=== PATIENT | female | born 1975 | race African-American/Black ===

== ENCOUNTER 2017-04-22 12:37 | Observation (INO) | payer BC ==
[2017-04-22 12:43] VITALS: BMI 32.4
[2017-04-22] MEDS ORDERED: ASPIRIN 81 MG CHEWABLE TABLETS PO ONE (14:16)
[2017-04-22 14:29] LABS: BASOPHIL 0.5 % (0-2.0); EOSINOPHIL 0.3 % (0-4.5); MCH 29.1 pg (25.7-33.7); MCHC 35.4 g/dl (32.0-36.0); MEAN CELL VOLUME 82.1 fl (80-96); MEAN PLT VOLUME 7.4 fl (7.5-11.1); PLATELET COUNT 334 K/MM3 (134-434); WHITE BLOOD COUNT 9.1 K/mm3 (4.0-10.0)
--- NOTE | 2017-04-22 14:29 | PDOC ---
History of Present Illness - General Chief Complaint: Shortness of Breath Stated Complaint: SOB Time Seen by Provider: 04/22/17 13:40 History Source: Patient Exam Limitations: No Limitations - History of Present Illness Initial Comments: 04/22/17 14:24 Patient came to emergency department with 2 complaints :first complaint, progressive episodes of shortness of breath. States a few months ago initial episodes occurred with exercise "walking up hills" and with spontaneously resolved. Patient states at that time would have some intermittent palpitations , would have some intermittent diaphoresis, but with resolution patient did not become overly concerned. Patient states these episodes have become more frequent , and occur at rest now. States had a few episodes today but spontaneously resolved.There is no exercise or activities associated with the incidence, never been evaluated nor ever been told had any cardiac disease. No family members with early cardiac illness. Patient has not seen a physician for many years as she "does not like to go to doctors". Patient denies fever, earache or sore throat pain. Has had no recent URIs. States has pollen and seasonal ALLERGIES but has not been suffering recently. No history of asthma or respiratory illness. Problem #2 and started about possible hemorrhoid with rectal pain. States a few days ago noticed some tenderness in her rectum and has been mildly constipated. States is trying to diet and increased treat protein in her diet making it a little more difficult to defecate. Denies any fever, denies any blood or change in color of stool, however have become more firm. No history of hemorrhoids, no other history of any rectal illness or pathology. 04/22/17 14:28 Timing/Duration: unsure Severity: mild Past History - Travel Traveled outside of the country in the last 30 days: No Close contact w/someone who was outside of country & ill: No - Past Medical History Allergies/Adverse Reactions: Allergies Allergy/AdvReac Type Severity Reaction Status Date / Time No Known Allergies Allergy Verified 04/22/17 12:39 Home Medications: Ambulatory Orders NK [No Known Home Medication] 04/22/17 Other medical history: none - Psycho/Social/Smoking Cessation Hx Anxiety: No Suicidal Ideation: No Smoking History: Never smoked Have you smoked in the past 12 months: No Information on smoking cessation initiated: No Hx Alcohol Use: No Drug/Substance Use Hx: No Substance Use Type: None Review of Systems - Review of Systems Able to Perform ROS?: Yes Is the patient limited Telugu proficient: Yes Constitutional: Yes: See HPI. No: Symptoms Reported, Fever, Malaise HEENTM: Yes: See HPI. No: Symptoms Reported Respiratory: Yes: Symptoms reported, See HPI, Orthopnea, Shortness of Breath, SOB with Exertion ABD/GI: Yes: Symptoms Reported, Other (rectal pain with swelling ) Integumentary: No: Symptoms Reported Neurological: Yes: See HPI, Dizziness (mild intermirttant dizziness with episodes of SOB). No: Symptoms reported, Headache, Numbness, Paresthesia All Other Systems: Reviewed and Negative *Physical Exam - Vital Signs Last Vital Signs Temp Pulse Resp BP Pulse Ox 98.2 F 75 18 148/81 100 04/22/17 12:41 04/22/17 12:41 04/22/17 12:41 04/22/17 12:41 04/22/17 12:41 - Physical Exam General Appearance: Yes: Nourished, Appropriately Dressed, Mild Distress HEENT: positive: ROSALIO, Normal ENT Inspection, TMs Normal, Pharynx Normal Neck: positive: Supple Respiratory/Chest: positive: Lungs Clear, Normal Breath Sounds Cardiovascular: positive: Regular Rhythm, Regular Rate Gastrointestinal/Abdominal: positive: Normal Bowel Sounds, Soft. negative: Tender Rectal Exam: positive: normal rectal tone, deferred, other (firm tender lesion on perineum that extends into the rectal vault approximately 3 cm that is 5 cm . No appreciated hemorrhoids,). negative: hemorrhoids Musculoskeletal: positive: Normal Inspection Extremity: positive: Normal Capillary Refill Integumentary: positive: Warm, Pale Neurologic: positive: sql database developer II-XII NML intact, Fully Oriented, Alert, Normal Mood/ Affect, Normal Response, Motor Strength 5/5 ED Treatment Course - LABORATORY CBC & Chemistry Diagram: 04/22/17 14:19 04/22/17 14:19 - RADIOLOGY Radiology Studies Ordered: Category Date Time Status CHEST PA & LAT [RAD] Stat Radiology 04/22/17 14:16 Ordered Medical Decision Making - Medical Decision Making 04/22/17 14:41 after thorough history obtained, and an initial clinical exam patient was transferred to main emergency department for more thorough evaluation and workup for cardiac symptomatology. Also patient secondary problem of rectal abscess will need surgical evaluation and possible intervention. Patient updated the plan, moved to bed 9 be in main emergency department and report given to Dr. Yesy Lovell. Nursing staff aware *DC/Admit/Observation/Transfer Diagnosis at time of Disposition: Chest tightness, Abscess - Discharge Dispostion Disposition: HOME Condition at time of disposition: Stable
[2017-04-22 14:40] LABS: INR 1.05 (0.82-1.09); PROTHROMBIN TIME (PATIENT) 11.6 SEC (9.98-11.88)
[2017-04-22] MEDS ORDERED: ASPIRIN 81 MG CHEWABLE TABLETS ONE (14:51)
[2017-04-22 14:53] LABS: ALBUMIN 3.7 g/dl (3.4-5.0); ANION GAP 8 (8-16); BILIRUBIN,TOTAL 0.4 mg/dL (0.2-1.0); CALCIUM 9.4 mg/dL (8.5-10.1); CO2 26 mmol/L (21-32); CREATININE 0.8 mg/dL (0.55-1.02); GLUCOSE,RANDOM 94 mg/dL (74-106); MAGNESIUM 2.2 mg/dL (1.8-2.4); SGOT/AST 14 U/L (15-37); SGPT/ALT 20 U/L (12-78); TOT PROT 7.3 g/dl (6.4-8.2)
[2017-04-22 14:56] LABS: ALK PHOS 70 U/L (45-117); TROPONIN I < 0.02 ng/ml (0.00-0.05)
--- NOTE | 2017-04-22 15:14 | PDOC ---
History of Present Illness - General History Source: Patient Exam Limitations: No Limitations <Florence Lovell - Last Filed: 04/23/17 16:22> - General History Source: Patient Exam Limitations: No Limitations - History of Present Illness Initial Comments: 04/22/17 16:32 The patient is a 42-year-old woman with no past medical history who initially was evaluated by [facility] and was sent back to the main emergency department for further evaluation of shortness of breath and possible perirectal abscess. Patient initially presented to [facility] complaining of progressively worsening exertional shortness of breath for the past few months. She states that her symptoms have become more frequent, now nonexertional and with noted associated intermittent palpitations and chest tightness (lasting a few seconds to minutes) with a rated 4/10 in severity. Patient denied any personal/family cardiac related past medical history. She denies fever, chills, generalized weakness, neck pain, back pain, cough, headache, lightheadedness, dizziness, leg pain, swelling. She also complained of constipation as she recalled having rectal pain 2 days ago. She reports a new diet change, including increase in protein intake for which she attributes to her rectal pain and constipation. She denies any hematochezia and melena. She denies history of hemorrhoids. No abdominal pain, nausea, vomiting. No flank pain, hematuria, urinary frequency/hesitancy,urgency. Allergies: No Known Drug Allergies Past Surgical History: None reported Social History: No tobacco, EtOH and recreational drug use. <Richa Watson - Last Filed: 04/24/17 07:52> - General Chief Complaint: Shortness of Breath Stated Complaint: SOB Time Seen by Provider: 04/22/17 13:40 Past History - Past Medical History Other medical history: none - Psycho/Social/Smoking Cessation Hx Anxiety: No Suicidal Ideation: No Smoking History: Never smoked Have you smoked in the past 12 months: No Information on smoking cessation initiated: No Hx Alcohol Use: No Drug/Substance Use Hx: No Substance Use Type: None <Florence Lovell - Last Filed: 04/23/17 16:22> <Richa Watson - Last Filed: 04/24/17 07:52> - Past Medical History Allergies/Adverse Reactions: Allergies Allergy/AdvReac Type Severity Reaction Status Date / Time No Known Allergies Allergy Verified 04/22/17 12:39 Home Medications: Ambulatory Orders NK [No Known Home Medication] 04/22/17 Review of Systems - Review of Systems Is the patient limited Chinese proficient: Yes <Florence Lovell - Last Filed: 04/23/17 16:22> - Review of Systems Able to Perform ROS?: Yes Comments:: 04/22/17 16:33 GENERAL/CONSTITUTIONAL: No: fever, chills, weakness, loss of appetite. HEAD, EYES, EARS, NOSE AND THROAT: No: change in vision, ear pain, discharge, sore throat, throat swelling. CARDIOVASCULAR: Yes: Chest tightness. Palpitations. No: lightheadedness, syncope RESPIRATORY: Yes: Shortness of breath. No: cough, wheezing, hemoptysis, stridor. GASTROINTESTINAL: Yes: Constipation. Rectal Pain. Re No: nausea, vomiting, abdominal cramping, diarrhea, rectal bleeding. GENITOURINARY: No: dysuria, hematuria, frequency, urgency, flank pain. MUSCULOSKELETAL: No: back pain, neck pain, joint pain, muscle swelling or pain SKIN AND BREASTS: No: lesions, pallor, rash or easy bruising. NEUROLOGIC: No: headache, vertigo, paresthesias, weakness ENDOCRINE: No: unexplained weight gain or loss HEMATOLOGIC/LYMPHATIC: No: anemia, easy bleeding, swelling nodes Is the patient limited Chinese proficient: No <Richa Watson - Last Filed: 04/24/17 07:52> *Physical Exam - Vital Signs Last Vital Signs Temp Pulse Resp BP Pulse Ox 98.2 F 75 18 148/81 100 04/22/17 12:41 04/22/17 12:41 04/22/17 12:41 04/22/17 12:41 04/22/17 12:41 <Florence Lovell - Last Filed: 04/23/17 16:22> - Vital Signs Last Vital Signs Temp Pulse Resp BP Pulse Ox 98.2 F 75 18 148/81 98 04/22/17 12:41 04/22/17 12:41 04/22/17 12:41 04/22/17 12:41 04/22/17 15:16 - Physical Exam Comments: 04/22/17 16:35 GENERAL: The patient is in no acute distress. HEAD: Normal with no signs of trauma. EYES: PERRLA, EOMI, sclera anicteric, conjunctiva clear. ENT: Ears normal, nares patent, oropharynx clear without exudates. Moist mucous membranes. NECK: Normal range of motion, supple without lymphadenopathy, JVD, or masses. LUNGS: Breath sounds equal, clear to auscultation bilaterally. No wheezes, and no crackles. HEART:Regular rate and rhythm, normal S1 and S2 without murmur, rub or gallop. ABDOMEN: Soft, nontender, normoactive bowel sounds. No guarding, no rebound. EXTREMITIES: Normal range of motion, no edema. No clubbing or cyanosis. No erythema, or tenderness. NEUROLOGICAL: Cranial nerves II through XII grossly intact. Normal speech. No focal neurological deficits. MUSCULOSKELETAL: Back non-tender to palpation, no CVA tenderness SKIN: Warm, Dry, normal turgor, no rashes or lesions noted. RECTAL: There is a tender indurated area posterior to the anus. No hemorrhoids. <Richa Watson - Last Filed: 04/24/17 07:52> Heart Score/ECG Review - History History: Slightly suspicious - Electrocardiogram EKG: Normal - Age Age: </= 45 - Risk Factors Based on the list above the patient has:: No risk factors known - Troponin Troponin: </= normal limit - Score Heart Score - Total: 0 #1 ECG reviewed & interpreted by me at: 15:39 General ECG Interpretation: Sinus Rhythm, Normal Rate, Normal Intervals, No acute ischemic changes <Florence Lovell - Last Filed: 04/23/17 16:22> ED Treatment Course - LABORATORY CBC & Chemistry Diagram: 04/22/17 14:19 04/22/17 14:19 - ADDITIONAL ORDERS Additional order review: Laboratory Results 04/22/17 14:19 Sodium 139 Potassium 4.2 Chloride 105 Carbon Dioxide 26 Anion Gap 8 BUN 10 Creatinine 0.8 Creat Clearance w eGFR > 60 Random Glucose 94 Calcium 9.4 Magnesium 2.2 Total Bilirubin 0.4 AST 14 L ALT 20 Alkaline Phosphatase 70 Creatine Kinase 134 Troponin I < 0.02 Total Protein 7.3 Albumin 3.7 Lipase 73 04/22/17 14:19 RBC 4.40 MCV 82.1 MCHC 35.4 RDW 14.0 MPV 7.4 L Neutrophils % 62.0 Lymphocytes % 29.7 Monocytes % 7.5 Eosinophils % 0.3 Basophils % 0.5 - Medications Given in the ED: ED Medications Discontinued Medications Generic Name Dose Route Start Last Admin Trade Name Freq PRN Reason Stop Dose Admin Aspirin 162 mg 04/22/17 14:16 04/22/17 14:49 Asa - PO 04/22/17 14:17 162 mg ONCE ONE Administration <NasFlorence - Last Filed: 04/23/17 16:22> - LABORATORY CBC & Chemistry Diagram: 04/22/17 14:19 04/22/17 14:19 - ADDITIONAL ORDERS Additional order review: Laboratory Results 04/22/17 04/22/17 14:55 14:19 Sodium 139 Potassium 4.2 Chloride 105 Carbon Dioxide 26 Anion Gap 8 BUN 10 Creatinine 0.8 Creat Clearance w eGFR > 60 Random Glucose 94 Calcium 9.4 Magnesium 2.2 Total Bilirubin 0.4 AST 14 L ALT 20 Alkaline Phosphatase 70 Creatine Kinase 134 Troponin I < 0.02 Total Protein 7.3 Albumin 3.7 Lipase 73 Urine Color Yellow Urine Appearance Clear Urine pH 5.0 Urine Protein Negative Urine Glucose (UA) Negative Urine Ketones Negative Urine Blood Negative Urine Nitrite Negative Urine Bilirubin Negative Urine Urobilinogen Negative Ur Leukocyte Esterase 1+ H Urine HCG, Qual Negative 04/22/17 14:19 RBC 4.40 MCV 82.1 MCHC 35.4 RDW 14.0 MPV 7.4 L Neutrophils % 62.0 Lymphocytes % 29.7 Monocytes % 7.5 Eosinophils % 0.3 Basophils % 0.5 - Medications Given in the ED: ED Medications Discontinued Medications Generic Name Dose Route Start Last Admin Trade Name Freq PRN Reason Stop Dose Admin Aspirin 162 mg 04/22/17 14:16 04/22/17 14:49 Asa - PO 04/22/17 14:17 162 mg ONCE ONE Administration <Richa Watson - Last Filed: 04/24/17 07:52> Medical Decision Making - Medical Decision Making 04/22/17 15:13 A portion of this note was documented by scribe services under my direction. I have reviewed the details of the note, within reason, and agree with the documentation with the following case summary and management plan written by me. Nursing documentation reviewed and incorporated into medical decision making 04/22/17 15:39 This is a 42 yo F with an unknown past medical history, possible diabetes she presents to the ER with a complaint of shortness of breath which initially was present with exertion up hills Pain is now present intermittently while not exerting herself Today, pt walked around the track After this, she developed chest tightness which concerned her in addition to shortness of breath No palpitations Labs sent and are normal EKG appears normal Will place on observation PT also has perianal abscess Case reviewed with Dr. Goff Will place on observation to Dr. Marin 04/22/17 18:19 CXR negative Pt states she can not stay in the hospital Will repeat trop Will discharge to home Will update Dr Marin 04/22/17 18:46 Laboratory Tests 04/22/17 04/22/17 04/22/17 14:19 14:19 14:19 WBC 9.1 Hgb 12.8 Hct 36.2 Plt Count 334 INR 1.05 BUN 10 Creatinine 0.8 Random Glucose 94 Creatine Kinase 134 Troponin I < 0.02 Ur Leukocyte Esterase Urine RBC Urine WBC Ur Epithelial Cells Urine HCG, Qual 04/22/17 14:55 WBC Hgb Hct Plt Count INR BUN Creatinine Random Glucose Creatine Kinase Troponin I Ur Leukocyte Esterase 1+ H Urine RBC 1 Urine WBC 6 Ur Epithelial Cells Rare Urine HCG, Qual Negative 04/22/17 18:46 <Florence Lovell - Last Filed: 04/23/17 16:22> - Medical Decision Making 04/22/17 15:[address] Tijerina. Case was discussed. Will evaluate patient at bedside. 04/22/17 16:[address] Marin. Case was discussed. Accepts case <Richa Watson - Last Filed: 04/24/17 07:52> *DC/Admit/Observation/Transfer - Discharge Dispostion Admit: Yes <Florence Lovell - Last Filed: 04/23/17 16:22> - Attestations Scribe Attestion: 04/22/17 16:37 Documentation prepared by Richa Watson, acting as medical appointment clerk for Florence Lovell MD. <Richa Watson - Last Filed: 04/24/17 07:52> Diagnosis at time of Disposition: Chest tightness, Abscess - Discharge Dispostion Disposition: HOME Condition at time of disposition: Stable
[2017-04-22 15:23] LABS: URINE APPEARANCE CLEAR; URINE BILIRUBIN NEGATIVE (NEGATIVE); URINE BLOOD NEGATIVE (NEGATIVE); URINE COLOR YELLOW; URINE GLUCOSE (UA) NEGATIVE (NEGATIVE); URINE KETONE NEGATIVE (NEGATIVE); URINE LEUK ESTERASE 1+ (NEGATIVE); URINE NITRITE NEGATIVE (NEGATIVE); URINE PROTEIN NEGATIVE (NEGATIVE); URINE UROBILINOGEN NEGATIVE E.U./dl (0.2-1.0)
[2017-04-22] MEDS ORDERED: SODIUM CHLORIDE 1,000 ML IV STA (15:35)
[2017-04-22 16:18] LABS: URINE BACTERIA MODERATE /hpf (NONE SEEN); URINE MUCUS RARE; URINE RBC 1 /hpf (0-3); URINE WBC 6 /hpf (3-5)
[2017-04-22] MEDS ORDERED: LIDOCAINE 1%/EPI 1:100000 (50 ML MULTI DOSE VIAL) ONE (17:18)
[2017-04-22] MEDS ORDERED: ACETAMINOPHEN 325 MG TABLET (FP) PO ONE (18:23)
[2017-04-22] MEDS ORDERED: ACETAMINOPHEN 325 MG TABLET (FP) ONE (18:27)
--- NOTE | 2017-04-22 18:32 | PDOC ---
ED Treatment Course - LABORATORY CBC & Chemistry Diagram: 04/22/17 14:19 04/22/17 14:19 - ADDITIONAL ORDERS Additional order review: Laboratory Results 04/22/17 04/22/17 04/22/17 14:55 14:19 14:19 INR 1.05 Sodium 139 Potassium 4.2 Chloride 105 Carbon Dioxide 26 Anion Gap 8 BUN 10 Creatinine 0.8 Creat Clearance w eGFR > 60 Random Glucose 94 Calcium 9.4 Magnesium 2.2 Total Bilirubin 0.4 AST 14 L ALT 20 Alkaline Phosphatase 70 Creatine Kinase 134 Troponin I < 0.02 Total Protein 7.3 Albumin 3.7 Lipase 73 Urine Color Yellow Urine Appearance Clear Urine pH 5.0 Urine Protein Negative Urine Glucose (UA) Negative Urine Ketones Negative Urine Blood Negative Urine Nitrite Negative Urine Bilirubin Negative Urine Urobilinogen Negative Ur Leukocyte Esterase 1+ H Urine RBC 1 Urine WBC 6 Ur Epithelial Cells Rare Urine Bacteria Moderate Urine Mucus Rare Urine HCG, Qual Negative 04/22/17 14:19 RBC 4.40 MCV 82.1 MCHC 35.4 RDW 14.0 MPV 7.4 L Neutrophils % 62.0 Lymphocytes % 29.7 Monocytes % 7.5 Eosinophils % 0.3 Basophils % 0.5 - Medications Given in the ED: ED Medications Discontinued Medications Generic Name Dose Route Start Last Admin Trade Name Freq PRN Reason Stop Dose Admin Aspirin 162 mg 04/22/17 14:16 04/22/17 14:49 Asa - PO 04/22/17 14:17 162 mg ONCE ONE Administration *DC/Admit/Observation/Transfer Diagnosis at time of Disposition: Chest tightness - Discharge Dispostion Disposition: HOME Condition at time of disposition: Stable Admit: No
[2017-04-22 18:35] VITALS: BP 161/90; PULSE 96; TEMP 98.3
--- NOTE | 2017-04-22 18:43 | CONSULT ---
Consult Consult Specialty:: General Surgery Referred by:: Florence Lovell Reason for Consultation:: perianal abscess - History of Present Illness Chief Complaint: R perianal pain and swelling History of Present Illness: 42yo healthy F came to ER initially for episode of SOB occurring few hours after exercising, lasting only minutes, for the third time in the last year. She felt better by the time she arrived, but also had noticed R perianal pain and swelling beginning Saturday night, first realized after a bowel movement. She has not been constipated, having normal, soft BMs daily, last this morning. No f /c, no n/v, no abdominal pain. Never had this problem before and thought it might be a hemorrhoid. She does admit to a short period of constipation a few months ago, and had some harder stools and was straining at times after increasing protein in her diet, but has not experienced this in the last month or so. Got Preparation H suppositories yesterday and has used yesterday and this morning, with slight relief of pain. Also using Tuck's pads (witch mariama), and tylenol/ibuprofen. She decided to have it checked here at ER, along with her shortness of breath. In ER, wbc is 9, pt is afebrile. ER exam suggested an area of swelling, tenderness, fullness and possible fluctuance radially just right of posterior midline. Surgery is consulted to evaluate for perianal abscess. - History Source History Provided By: Patient Limitations to Obtaining History: No Limitations - Past Medical History Pulmonary: No: Asthma ...LMP: 04/06/17 ...: No ...: 2 ...Para: 1 - Past Surgical History Past Surgical History: Yes: - Alcohol/Substance Use Hx Alcohol Use: Yes (social) History of Substance Use: reports: None - Smoking History Smoking history: Never smoked Have you smoked in the past 12 months: No Home Medications - Allergies Allergies/Adverse Reactions: Allergies Allergy/AdvReac Type Severity Reaction Status Date / Time No Known Allergies Allergy Verified 04/22/17 12:39 - Home Medications Home Medications: Ambulatory Orders NK [No Known Home Medication] 04/22/17 Home Medications (free text): multivitamin daily Family Disease History - Family Disease History Family History: Unremarkable Review of Systems - Review of Systems Constitutional: denies: Chills, Fever Eyes: reports: Blurred Vision (at reading distance sometimes). denies: Double Vision HENT: denies: Difficult Swallowing, Nasal Congestion, Throat Pain Neck: denies: Pain on Movement, Stiffness, Swollen Glands Cardiovascular: denies: Chest Pain, Palpitations Respiratory: reports: SOB (has happened three times in last year, once with exertion, others after or not related, lasting only minutes or less, earlier today with twinge (1 second) of pain - all episodes resolve spontaneously) Gastrointestinal: reports: Constipation (briefly couple months ago). denies: Abdominal Pain, Diarrhea, Melena, Nausea, Rectal Bleeding, Vomiting Genitourinary: denies: Burning, Dysuria Musculoskeletal: denies: Back Pain, Muscle Pain Integumentary: denies: Bruising, Rash Neurological: denies: Dizziness, Headache, Unsteady Gait, Weakness Endocrine: denies: Unexplained Weight Gain, Unexplained Weight Loss Psychiatric: denies: Anxiety, Depression Physical Exam Vital Signs: Vital Signs Temperature 98.2 F 04/22/17 12:41 Pulse Rate 75 04/22/17 12:41 Respiratory Rate 18 04/22/17 12:41 Blood Pressure 148/81 04/22/17 12:41 O2 Sat by Pulse Oximetry (%) 98 04/22/17 15:16 Constitutional: Yes: Well Nourished, No Distress, Calm Eyes: Yes: Conjunctiva Clear, EOM Intact HENT: Yes: Atraumatic, Normocephalic Cardiovascular: Yes: Regular Rate and Rhythm. No: Murmur Respiratory: Yes: Regular, CTA Bilaterally. No: Rales, Rhonchi, Wheezes Gastrointestinal: Yes: Normal Bowel Sounds, Soft, Hernia (tiny umbilical palpable), Other (healed pfannenstiel scar). No: Tenderness ...Rectal Exam: Yes: Sphincter Tone Normal, Other (no stool in vault, some residual whitish suppository residue present; just right of posterior midline, there is a radial fullness, pink, tender, slightly fluctuant, extending just inside anal canal - slight fullness just inside anal verge, but no pus or blood present, no drainage expressible, no significant surrounding induration or cellulitis). No: Hemorrhoids/External Renal/: No: Vaginal Bleeding, Vaginal Discharge Extremities: No: Cool, Cyanosis Edema: No Peripheral Pulses WNL: Yes Integumentary: Yes: Tattoos (right posterior shoulder). No: Rash Neurological: Yes: Alert, Oriented. No: Unsteady Gait Labs: CBC, BMP 04/22/17 14:19 04/22/17 14:19 Imaging - Results Chest X-ray: Image Reviewed Problem List - Problems (1) Perianal abscess Assessment/Plan: just to right of posterior midline discussed R/B/A of incision and drainage under local anesthesia with patient including but not limited to: bleeding, infection, development of anal fistula with patient's permission, I&D performed in ER - see procedure note Plan: if pt stays in hospital, I will see her tomorrow to remove packing and check wound if pt goes home, she is to remove dressing and packing at 24hrs or after first bowel movement then to start sitz baths 2-3x/day and after each bowel movement, or shower with BMs for cleansing ensure wound stays open with fingertip at each bath/shower, tuck gauze into area after patting dry and keep covered with gauze to absorb drainage pad in underwear for same if in hospital tomorrow, will discuss outpt followup pending discharge timing if goes home, [facility] around 11-11:30am to be seen for wound check (Office number [phone]) Pt to alternate acetaminophen (650-1000mg q6H) and ibuprofen (400-600mg q6H), every 3H for pain control - decrease to prn as able Thank you for the opportunity to participate in the care of this patient. Code(s): K61.0 - ANAL ABSCESS (2) Shortness of breath Assessment/Plan: defer to ER for mgmt/plan Code(s): R06.02 - SHORTNESS OF BREATH
--- NOTE | 2017-04-22 19:09 | PROC ---
Incision and Drainage Indication/Location: R perianal abscess Risks and Benefits Explained: Yes Consent on Chart: No (verbal consent obtained) Betadine cleansed: Yes Anesthesia: 1% Lidocaine w/ Epi (13ml infiltrated around and under abscess) Blade Size: 15 Drainage: 2ml pus Irrigated with Normal Saline: No (irrigated with local, manually probed to ensure loculations broken up) Plain packing: Yes (/") Sterile Dressing Applied: Yes - Remarks Remarks: cavity tracked toward anus but no clear evidence of fistula
[2017-04-22 19:54] LABS: TROPONIN I < 0.02 ng/ml (0.00-0.05)
--- NOTE | 2017-04-22 20:51 | PDOC ---
*Physical Exam - Vital Signs Last Vital Signs Temp Pulse Resp BP Pulse Ox 98.3 F 96 H 22 161/90 98 04/22/17 18:34 04/22/17 18:34 04/22/17 18:34 04/22/17 18:34 04/22/17 18:34 ED Treatment Course - LABORATORY CBC & Chemistry Diagram: 04/22/17 14:19 04/22/17 14:19 - ADDITIONAL ORDERS Additional order review: Laboratory Results 04/22/17 04/22/17 04/22/17 14:55 14:19 14:19 INR 1.05 Sodium 139 Potassium 4.2 Chloride 105 Carbon Dioxide 26 Anion Gap 8 BUN 10 Creatinine 0.8 Creat Clearance w eGFR > 60 Random Glucose 94 Calcium 9.4 Magnesium 2.2 Total Bilirubin 0.4 AST 14 L ALT 20 Alkaline Phosphatase 70 Creatine Kinase 134 Troponin I < 0.02 Total Protein 7.3 Albumin 3.7 Lipase 73 Urine Color Yellow Urine Appearance Clear Urine pH 5.0 Ur Specific Alborn 1.020 Urine Protein Negative Urine Glucose (UA) Negative Urine Ketones Negative Urine Blood Negative Urine Nitrite Negative Urine Bilirubin Negative Urine Urobilinogen Negative Ur Leukocyte Esterase 1+ H Urine RBC 1 Urine WBC 6 Ur Epithelial Cells Rare Urine Bacteria Moderate Urine Mucus Rare Urine HCG, Qual Negative 04/22/17 14:19 RBC 4.40 MCV 82.1 MCHC 35.4 RDW 14.0 MPV 7.4 L Neutrophils % 62.0 Lymphocytes % 29.7 Monocytes % 7.5 Eosinophils % 0.3 Basophils % 0.5 - Medications Given in the ED: ED Medications Discontinued Medications Generic Name Dose Route Start Last Admin Trade Name Keshawnq PRN Reason Stop Dose Admin Acetaminophen 975 mg 04/22/17 18:23 04/22/17 18:35 Tylenol - PO 04/22/17 18:24 975 mg ONCE ONE Administration Aspirin 162 mg 04/22/17 14:16 04/22/17 14:49 Asa - PO 04/22/17 14:17 162 mg ONCE ONE Administration Medical Decision Making - Medical Decision Making 04/22/17 20:50 42y F w/o any pmhx presenting with complaint SOB and perirectal abscess. Pt had 2 trops neg, and s/p I&D by dr. Goff. Pt feels well. will dc with pmd fu. d/c instructions discussed will have pt fu with dr. Goff and PMD return precautions were discussed I discussed the physical exam findings, ancillary test results and final diagnoses with the patient. I answered all of the patient's questions. The patient was satisfied with the care received and felt comfortable with the discharge plan and treatment plan. The patient will call their primary care physician within 24 hours to arrange follow-up and will return to the Emergency Department with any new, persistent or worsening symptoms. *DC/Admit/Observation/Transfer Diagnosis at time of Disposition: Chest tightness, Abscess - Discharge Dispostion Disposition: HOME Condition at time of disposition: Stable Admit: No - Post Discharge Activity Activity Comments: Return to the emergency department immediately with ANY new, persistent or worsening symptoms including worsening pain, fever/chills, rectal pain, bleeding ,chest pain, shortness of breath or any other concerns. Remove the packing at 24 hrs or after your first Bowel movement. Start using sitz bath 2-3x/day You MUST call and follow up with Dr. Goff on April 24 at 11:00 for further evaluation of your symptoms. Results were discussed with you. Please make sure your doctor reviews the results of your emergency evaluation. GO to the diagnostic center to see dr. Goff. The office number is [phone]. Alternate 650-1000mg of tylenol every 6 hours for pain with 400-600mg of motrin for pain.
--- NOTE | 2017-04-23 14:33 | EKG ---
Test Reason : Blood Pressure : / mmHG Vent. Rate : 071 BPM Atrial Rate : 071 BPM P-R Int : 144 ms QRS Dur : 072 ms QT Int : 364 ms P-R-T Axes : 041 051 040 degrees QTc Int : 395 ms NORMAL SINUS RHYTHM NORMAL ECG NO PREVIOUS ECGS AVAILABLE [facility]IC[facility] Confirmed by INGRID GIORDANO MD ([id number]) on 04/23/2017 2:33:23 PM Referred By: Confirmed By:INGRID GIORDANO MD
== END 2017-04-22 21:25 | disposition home or self-care (01) ==
LOC: JERFT 12:37 → JER 12:37 → JERBED 16:13
PROVIDERS: ADMIT Internal Medicine; ATTEND Internal Medicine
PROC: 0D9Q0ZZ Drainage of Anus, Open Approach (ICD-10-PCS; principal; 2017-04-22)
PROC: 3E0337Z Introduction of Electrolytic and Water Balance Substance into Peripheral Vein, Percutaneous Approach (ICD-10-PCS; 2017-04-22)
DX: R07.89 Other chest pain (principal); K61.0 Anal abscess; R06.02 Shortness of breath
CPT/HCPCS: 36415; 71020-TC; 80053; 81003; 81015; 82550; 83690; 83735; 84484; 84703; 85025; 85610; 93005; 93010; 99284-25; G0378

== ENCOUNTER 2018-07-23 01:01 | Emergency (ER) | payer SELFPAY ==
[2018-07-23 02:29] VITALS: BMI 32.3
--- NOTE | 2018-07-23 02:55 | PDOC ---
History of Present Illness - General Chief Complaint: Pain Stated Complaint: PAIN,ABSCESS MOUTH Time Seen by Provider: 07/23/18 02:50 - History of Present Illness Initial Comments: 07/23/18 02:52 43 yo F with h/o HTN who p/w right sided facial swelling, and tooth pain. Patient reports sharp, left sided cheek swelling and tooth pain x 1 month. Pain onset following tooth avulsion after patient pulled on her tooth. Endorses pain with mastication. Reports similar h/o symptoms in adolescence with dental abscess. Patient has not followed up with dental d/t issue with dental insurance coverage. Has attempted OTC "Orajel" with minimal relief in pain. Patient denies difficulty swallowing, oral drainage, drooling, muffled voice, trismus, RIBERA, vision change, N/V, F,C, CP, SOB, urinary complaints, abdominal pain, diarrhea, constipation, lightheadedness, weakness, sensory changes. PMHx: as noted above ROS: as noted SHx: Denies Etoh, tobacco, IVDA Allergies: NKDA Past History - Past Medical History Allergies/Adverse Reactions: Allergies Allergy/AdvReac Type Severity Reaction Status Date / Time No Known Allergies Allergy Verified 07/23/18 02:23 Home Medications: Ambulatory Orders Amoxicillin/Potassium Clav [Augmentin 875-125 Tablet] 1 each PO BID 7 Days #14 tablet 07/23/18 COPD: No Other medical history: Pt denies - Suicide/Smoking/Psychosocial Hx Smoking History: Never smoked Have you smoked in the past 12 months: No Information on smoking cessation initiated: No Hx Alcohol Use: No Drug/Substance Use Hx: No Substance Use Type: None Review of Systems - Review of Systems Comments:: 07/23/18 02:53 GENERAL/CONSTITUTIONAL: No fever or chills. No weakness. HEAD, EYES, EARS, NOSE AND THROAT: + Left sided tooth/molar pain. No change in vision. No ear pain or discharge. No sore throat. CARDIOVASCULAR: No chest pain or shortness of breath RESPIRATORY: No cough, wheezing, or hemoptysis. GASTROINTESTINAL: No nausea, vomiting, diarrhea or constipation. GENITOURINARY: No dysuria, frequency, or change in urination. MUSCULOSKELETAL: No joint or muscle swelling or pain. No neck or back pain. SKIN: No rash NEUROLOGIC: No headache, vertigo, loss of consciousness, or change in strength/ sensation. ENDOCRINE: No increased thirst. No abnormal weight change HEMATOLOGIC/LYMPHATIC: No anemia, easy bleeding, or history of blood clots. ALLERGIC/IMMUNOLOGIC: No hives or skin allergy. *Physical Exam - Vital Signs Last Vital Signs Temp Pulse Resp BP Pulse Ox 98.7 F 84 20 161/102 H 99 07/23/18 02:25 07/23/18 02:25 07/23/18 02:25 07/23/18 02:25 07/23/18 02:25 - Physical Exam Comments: 07/23/18 02:53 GENERAL: Awake, alert, and fully oriented, in no acute distress HEAD: No signs of trauma, normocephalic, atraumatic EYES: PERRLA, EOMI, sclera anicteric, conjunctiva clear ENT: + Right maxillary ttp, and swelling, with absent skin change, fluctuance. + Right sided upper 1st molar dental jaida/decay with tooth avulsion. Hearing grossly normal, nares patent, oropharynx clear without exudates. Moist mucosa NECK: Normal ROM, supple, no lymphadenopathy, JVD, or masses LUNGS: No distress, speaks full sentences, clear to auscultation bilaterally HEART: Regular rate and rhythm, normal S1 and S2, no murmurs, rubs or gallops, peripheral pulses normal and equal bilaterally. EXTREMITIES : Normal inspection, Normal range of motion, no edema. No clubbing or cyanosis. SKIN: Warm, Dry, normal turgor, no rashes or lesions noted ED Treatment Course - LABORATORY CBC & Chemistry Diagram: 07/23/18 04:00 07/23/18 04:00 Medical Decision Making - Medical Decision Making 07/23/18 03:14 43 yo F with h/o HTN who p/w right sided facial swelling, and tooth pain. BP 161 /102, vitals otherwise wnl. + Rt sided 1st molar tooth avulsion and decay. + Rt sided asymmetric swelling and maxillary ttp. Likely periodontal decay vs. periapacal abscess. Low suspicion retropharyngeal abscess, peritonsilar asbcess. Patient maintaining airway, and able to tolerate oral secretions, with absent evidence of ludwigs angina or submanidibular deep space infection. ED Course: Ibuprofen 600 mg, Augmentin 875 mg Patient advised to f/u with dental. 07/23/18 03:54 Augmentin sent to pharmacy. 07/23/18 04:37 CBC,CMP: Unremarkable UA: Neg 07/23/18 05:16 Repeat BP 135/87 Patient provided number to dental clinic. Patient stable for d/c with return precautions. *DC/Admit/Observation/Transfer Diagnosis at time of Disposition: Dental caries - Prescriptions Prescriptions: Amoxicillin/Potassium Clav [Augmentin 875-125 Tablet] 1 each PO BID 7 Days #14 tablet - Referrals - Patient Instructions Printed Discharge Instructions: DI for Tooth Decay Additional Instructions: Please return to the emergency department with any new or worsening symptoms or concerns. Please follow up with your primary care physician within 72 hours. Please take Augmentin twice a day for 7 days. Please follow up with dental within 72 hours. Here are some low cost dental clinics in [facility]: [facility] [phone] [address] [facility] [phone] [place] [id number] [facility] [phone] [place] [id number] [facility] [phone] [address] [facility] [phone] [place] [address] [facility] [phone] [place] [address] [facility] Department of Dental Medicine [phone] [place] [id number] [facility] [phone] [address] - Post Discharge Activity - Attestations Physician Attestion: 07/23/18 02:54 I attest to the information provided in this note.
[2018-07-23] MEDS ORDERED: IBUPROFEN 600 MG TABLET (FP) PO ONE ×2 (03:15→04:02)
[2018-07-23] MEDS ORDERED: AMOX TR/POT CLAV 875MG/125MG TABLETS (FP) PO ONE (03:52)
[2018-07-23] MEDS ORDERED: AMOX TR/POT CLAV 875MG/125MG TABLETS (FP) ONE (04:01)
[2018-07-23 04:06] LABS: BASO % 0.8 % (0-2.0); EOS % 1.3 % (0-4.5); HEMATOCRIT 36.1 % (32.4-45.2); HEMOGLOBIN 12.8 GM/dL (10.7-15.3); LYMPH % 21.4 % (8-40); MCHC 35.4 g/dl (32.0-36.0); MEAN CELL VOLUME 84.7 fl (80-96); MEAN PLT VOLUME 7.2 fl (7.5-11.1); MONO % 7.6 % (3.8-10.2); NEUT % 68.9 % (42.8-82.8); PLATELET COUNT 340 K/MM3 (134-434); RBC 4.26 M/mm3 (3.60-5.2); WHITE BLOOD COUNT 8.5 K/mm3 (4.0-10.0)
[2018-07-23 04:31] LABS: ALBUMIN 3.7 g/dl (3.4-5.0); ALK PHOS 67 U/L (45-117); ANION GAP 7 MMOL/L (8-16); BILIRUBIN,TOTAL 0.5 mg/dL (0.2-1); BLOOD UREA NITROGEN 16 mg/dL (7-18); CALCIUM 8.7 mg/dL (8.5-10.1); CHLORIDE 107 mmol/L (98-107); CO2 25 mmol/L (21-32); CREATININE 0.8 mg/dL (0.55-1.3); GLUCOSE,RANDOM 119 mg/dL (74-106); POTASSIUM 4.6 mmol/L (3.5-5.1); SGOT/AST 11 U/L (15-37); SGPT/ALT 20 U/L (13-61); SODIUM 139 mmol/L (136-145); TOT PROT 7.1 g/dl (6.4-8.2)
--- NOTE | 2018-07-23 05:14 | PDOC ---
Attending Attestation - Resident Resident Name: Tarik Tate - ED Attending Attestation I have performed the following: I have examined & evaluated the patient, The case was reviewed & discussed with the resident, I agree w/resident's findings & plan, Exceptions are as noted - HPI HPI: 07/23/18 05:34 The patient is a 43-year-old female, with a past medical history of HTN, who presents to the ED with 1 month of right-sided facial swelling and tooth pain. Patient does not have dental insurance at this time. She was worried the swelling could be an abscess and decided to come in to the ED for evaluation and to have it drained. Pt has taken orajel for pain, no other tx tried. The patient denies any difficulty swallowing, oral drainage, or throat swelling. She denies any fever, chills, nausea, vomiting, diarrhea, or abdominal pain. - Physicial Exam PE: 07/23/18 05:14 R 1st upper molar with avulsion and tooth decay, +tenderness to tapping of the tooth. No exposed pulp. +erythema to gumline adjacent to tooth but no abscess, no fluctuance or discharge. - Medical Decision Making 07/23/18 05:17 43yo F presents to the ED with painful dental caries. No evidence of abscess on exam. No systemic signs of infection. Pain well controlled with motrin. Will treat with augmentin in case of early infection. Pt provided with resources for low cost dental carriers in [facility] until her benefits kick in. I discussed the physical exam findings, ancillary test results and final diagnoses with the patient. I answered all of the patient's questions. The patient was satisfied with the care received and felt comfortable with the discharge plan and treatment plan. The patient will call their primary care physician within 24 hours to arrange follow-up and will return to the Emergency Department with any new, persistent or worsening symptoms.
[2018-07-23 05:26] VITALS: BP 135/87; PULSE 80; TEMP 98.3
== END 2018-07-23 05:38 | disposition home or self-care (01) ==
LOC: JER 01:01
DX: K02.9 Dental caries, unspecified (principal); I10 Essential (primary) hypertension
CPT/HCPCS: 36415; 80053; 84703; 85025; 99281-25; 99283-25